=== PATIENT | female | born 1940 | race Caucasian/White ===

== ENCOUNTER → 2016-07-03 | Outpatient (CLI) | payer MEDICARE ==
--- NOTE | 2016-07-03 16:59 | REP ---
Chest two views HISTORY: Cough Comparison: 07/13/2007 Linear densities are present in the lower lobes consistent with scar. The heart is normal in size. The pulmonary vasculature is normal in appearance. The bony structure is intact. IMPRESSION: Bibasilar scarring. Signed by Bandar Campbell MD 07/03/2016 04:51 P
== END ==
LOC: M RAD 16:14
PROVIDERS: ATTEND Nurse Practitioner Adult Health
DX: R05 Cough (principal)

== ENCOUNTER → 2016-08-01 | Outpatient (CLI) | payer MEDICARE ==
[~2016-08-01] MED LIST: E-Z PAQUE 60% w/v SUSP 355ML BOTTLE As Ordered ONE; VARIBAR NECTAR 40% w/v 240ML SUSP BTL As Ordered ONE; VARIBAR PUDDING 40% w/v 230ML TUBE As Ordered ONE
--- NOTE | 2016-08-01 09:43 | REP ---
MODIFIED BARIUM SWALLOW: Cine fluoroscopy. HISTORY: Dysphasia. Fluoroscopy time is 45 seconds. FINDINGS: The study is performed in conjunction with the swallowing therapist who gave the patient a variety of barium textured materials. Video fluoroscopy was provided. With thin liquid barium, there was mild laryngeal penetration. No aspiration was seen. No other motor discoordination of swallow is seen. No penetration was observed with thicker materials. Mild degenerative disc changes are seen in the cervical spine. Signed by Anand Bacon MD 08/01/2016 05:35 P
== END ==
LOC: M ST 08:46
PROVIDERS: ATTEND Nurse Practitioner Adult Health
DX: R13.10 Dysphagia, unspecified (principal)
CPT/HCPCS: 74230; 92611; G8996; G8997; G8998

== ENCOUNTER → 2019-02-03 | Outpatient (CLI) | payer MEDICARE ==
[2019-02-03 10:24] LABS: COLLAGEN EPINEPHRINE 92 SECONDS (74-162)
== END ==
LOC: M LAB 09:46
PROVIDERS: ATTEND Ophthalmology
DX: H50.112 Monocular exotropia, left eye (principal); H53.032 Strabismic amblyopia, left eye

== ENCOUNTER 2019-06-01 12:36 | Day surgery (SDC) | payer MEDICARE ==
[~2019-06-01] VITALS: Ht 152.4 cm; Wt 66.2 kg
[~2019-06-01 12:36] MED LIST changes: -E-Z PAQUE 60% w/v SUSP 355ML BOTTLE As Ordered ONE; +ELIQ5TAB PO; +LISI10TA4 PO; +METO1TAB87 PO; +NEXI20CA PO; +NS 1,000 ML IV ONE; +TRAM50TA2 PO; -VARIBAR NECTAR 40% w/v 240ML SUSP BTL As Ordered ONE; -VARIBAR PUDDING 40% w/v 230ML TUBE As Ordered ONE
[2019-06-01] MEDS ORDERED: fentaNYL 100 MCG/2 ML INJECTION (J3010) As Ordered ONE (15:01)
[2019-06-01] MEDS ORDERED: propofoL 200 MG/20 ML VIAL As Ordered ONE (15:07)
[2019-06-01] MEDS ORDERED: LIDOCAINE 2% INJ 100 MG/5 ML SDV (FOR ANES.) As Ordered ONE (15:07)
--- NOTE | 2019-06-01 15:18 | ROOR ---
Patient Name: Halina Jernigan Procedure Date: 06/01/2019 3:03 PM Date of : 1940 Age: 78 Room: [facility] Gender: Female Note Status: Finalized Procedure: Upper GI endoscopy Indications: Epigastric abdominal pain, Heartburn Providers: Peter KUO MD Referring MD: SANTOS CANTU JR, MD Requesting Provider: Medicines: Monitored Anesthesia Care Complications: No immediate complications. Procedure: Pre-Anesthesia Assessment: - The heart rate, respiratory rate, oxygen saturations, blood pressure, adequacy of pulmonary ventilation, and response to care were monitored throughout the procedure. The Endoscope was introduced through the mouth, and advanced to the second part of duodenum. The upper GI endoscopy was accomplished without difficulty. The patient tolerated the procedure well. Findings: The examined esophagus was normal. Small Hiatal Hernia. Diffuse mild inflammation characterized by erythema was found in the gastric antrum. Biopsies were taken with a cold forceps for histology. The exam of the stomach was otherwise normal. The examined duodenum was normal. Impression: - Normal esophagus. - Small Hiatal Hernia. - Mucosal changes suspicious for bile gastritis. Biopsied. - Normal examined duodenum. Recommendation: - Await pathology results. - Continue present medications. - Follow an antireflux regimen. - Telephone endoscopist for pathology results in 2 weeks. Peter Kuo MD Peter KUO MD 06/01/2019 3:17:59 PM Electronically signed by Peter KUO MD Number of Addenda: 0 Note Initiated On: 06/01/2019 3:03 PM Estimated Blood Loss: Estimated blood loss: none.
[2019-06-01 15:45] VITALS: BP 193/89
== END 2019-06-01 16:14 | disposition home or self-care (01) ==
LOC: M OPP 12:36
PROVIDERS: ATTEND Internal Medicine Gastroenterology
DX: R10.13 Epigastric pain (principal); E11.9 Type 2 diabetes mellitus without complications; K31.89 Other diseases of stomach and duodenum; K44.9 Diaphragmatic hernia without obstruction or gangrene; I48.91 Unspecified atrial fibrillation; R06.83 Snoring; I11.9 Hypertensive heart disease without heart failure; Z79.01 Long term (current) use of anticoagulants; Z79.899 Other long term (current) drug therapy
CPT/HCPCS: 43239; 88305; J3010

== ENCOUNTER → 2019-10-06 | Outpatient (CLI) | payer MEDICARE ==
[~2019-10-06] MED LIST changes: -NS 1,000 ML IV ONE
[2019-10-06 10:22] LABS: HEMATOCRIT 46.1 % (36.0-47.0); HEMOGLOBIN 15.2 g/dl (12.0-15.5); MEAN CORPUSCULAR VOLUME 91.1 fl (80.0-96.0); PLATELET COUNT, AUTOMATED 209 10^3/uL (150-450); RED BLOOD COUNT 5.06 10^6/uL (4.00-5.40); WHITE BLOOD COUNT 6.7 10^3/uL (4.0-10.0)
[2019-10-06 10:52] LABS: CREATININE FOR GFR 1.03 MG/DL (0.55-1.30)
[2019-10-06 10:53] LABS: ALBUMIN 3.2 GM/DL (3.2-5.2); BILIRUBIN,TOTAL 0.7 MG/DL (0.2-1.0); CALCIUM LEVEL 8.9 MG/DL (8.8-10.2); GLOMERULAR FILTRATION RATE 55.5 (>39); POTASSIUM SERUM 4.3 MEQ/L (3.5-5.1); TOTAL PROTEIN 6.4 GM/DL (6.4-8.2)
== END ==
LOC: M WUC 08:58
PROVIDERS: ATTEND Internal Medicine Cardiovascular Disease
DX: I48.0 Paroxysmal atrial fibrillation (principal); E11.9 Type 2 diabetes mellitus without complications; I10 Essential (primary) hypertension

== ENCOUNTER 2019-11-29 21:14 | Inpatient (IN) | payer MEDICARE ==
[2019-11-29] MEDS ORDERED: ACETAMINOPHEN 500 MG TAB As Ordered ONE (23:39)
[2019-11-29] MEDS ORDERED: AUGMENTIN 875 MG TAB As Ordered ONE (23:39)
[2019-11-30] MEDS ORDERED: ONDANSETRON 4MG/2ML VIAL As Ordered ONE (05:17)
[2019-11-30] MEDS ORDERED: AUGMENTIN 500 MG TAB ONE (08:00)
[2019-11-30] MEDS ORDERED: DUTASTERIDE 0.5 MG CAP (AVODART) ONE (08:00)
[2019-11-30] MEDS ORDERED: PANTOPRAZOLE 40MG VIAL (C9113 PER 1) As Ordered ONE (10:23)
[2019-11-30] MEDS ORDERED: lisinopriL 10 MG TAB As Ordered ONE (10:23)
[2019-11-30] MEDS ORDERED: METOPROLOL SUCC *XL* 25MG TAB (TopROL *XL*) As Ordered ONE ×2 (10:23→20:54)
[2019-11-30] MEDS ORDERED: HumaLOG INSULIN (NovoLOG) PER UNIT As Ordered ONE (12:29)
[2019-11-30] MEDS ORDERED: LACTOBACILLUS ACIDOPHILUS CAP (BACID) As Ordered ONE ×2 (12:54→20:54)
[2019-12-01] MEDS ORDERED: METOPROLOL TART 50 MG TAB As Ordered ONE (08:33)
[2019-12-01] MEDS ORDERED: LACTOBACILLUS ACIDOPHILUS CAP (BACID) As Ordered ONE ×2 (08:33→13:16)
[2019-12-01] MEDS ORDERED: PANTOPRAZOLE 40MG VIAL (C9113 PER 1) As Ordered ONE (08:33)
[2019-12-01] MEDS ORDERED: lisinopriL 10 MG TAB As Ordered ONE (08:37)
[2019-12-01] MEDS ORDERED: HumaLOG INSULIN (NovoLOG) PER UNIT As Ordered ONE (08:37)
[2019-12-01] MEDS ORDERED: AUGMENTIN 500 MG TAB ONE (13:00)
--- NOTE | 2019-12-29 10:00 | MHCR ---
DATE: 12/01/2019 I want to clarify that the entire dictation and computer systems in the hospital have been down. I was asked to see this 79-year-old woman today by Dr. Garcia. Apparently, the patient comes to visit her every day, who is admitted to the hospital, basically terminal, and apparently she fell and fractured her nose. Dr. Garcia said from a medical point of view she is ready for discharge; however, the nurses have advised Dr. Garcia that they wonder if maybe there might be possibly some psychiatric problems with the patient. Apparently, they describe that she is exhibiting pressured speech, that she is forgetful. Apparently the patient is on the same floor that her is on, so they have allowed her to go and visit the , and the staff told her that she is not supposed to help the , and she tried to help the to get up, and the fell. Dr. Delvalle spoke with both of the sons, and they say that the patient, as far as they know, has never been treated for any psychiatric problems. They describe that their mother has sometimes had "odd behavior," but they feel that this baseline for their mother. I saw the patient together in the company of her son, and the patient was very cooperative. I did not see any pressured speech in this patient. I did not elicit any hypomanic or manic-like symptoms either. The patient has never had prior psychiatric treatment. She has never taken any psychotropic medications. The son does describe the mother as always being the kind of person that always wants to do everything at once and, of course, now that she is older he has noticed that it is a little more difficult for her to do these things. He is not noticed any actual problems with her memory. PAST PSYCHIATRIC HISTORY: This is negative, as stated above. FAMILY HISTORY: This is negative for any psychiatric problems with members of the family. MEDICAL HISTORY: The patient was admitted for the fractured nose, but she also has some other medical problems, like atrial fibrillation, hypertension, diabetes. SUBSTANCE ABUSE HISTORY: There is no history of any problems with alcohol or drugs. MENTAL STATUS EXAMINATION: Patient is alert and oriented times three. Pleasant. She was cooperative. I did not notice any pressured speech. There was no formal thought disorder noted. Said her mood, of course, was sad. Affect is appropriate to mood. She is not psychotic, suicidal, homicidal. Concentration is fair. Memory appeared to be mostly intact. The patient was able to spell "world" backward, able to remember two out of three words after 5 minutes. She could name parts of objects. Insight and judgment appeared to be good. DIAGNOSIS: Rule out unspecified cognitive disorder. TREATMENT PLAN: I do not have any recommendations from a point of view of psychiatric. At this point, the patient should continue her current treatment, but I do advise that she get further evaluated for any cognitive impairment by the neurologist. I will add that the patient did have a CT scan of the head that was normal. ARTHUR
[2020-01-16 03:46] LABS: BASO # 0.1 10^3/uL (0.0-0.2); BASO % 0.7 % (0.0-1.0); EOS # 0.1 10^3/uL (0.0-0.5); HEMATOCRIT 42.9 % (36.0-47.0); HEMOGLOBIN 14.1 g/dl (12.0-15.5); LYMPH # 1.8 10^3/uL (1.5-5.0); LYMPH % 17.4 % (24.0-44.0); MEAN CORPUSCULAR HEMOGLOBIN 29.3 pg (27.0-33.0); MEAN CORPUSCULAR HGB CONC 32.9 g/dl (32.0-36.5); MONO # 0.5 10^3/uL (0.0-0.8); MONO % 5.2 % (0.0-5.0); NEUTROPHILS # 7.9 10^3/uL (1.5-8.5); NEUTROPHILS % 75.4 % (36.0-66.0); PLATELET COUNT, AUTOMATED 226 10^3/uL (150-450); RED BLOOD COUNT 4.82 10^6/uL (4.00-5.40); WHITE BLOOD COUNT 10.4 10^3/uL (4.0-10.0)
[2020-01-16 04:02] LABS: INR 1.2; PARTIAL THROMBOPLASTIN TIME 28.5 SECONDS (24.2-38.5); PROTHROMBIN TIME 15.5 SECONDS (12.5-14.3)
--- NOTE | 2020-01-19 11:30 | ECGEPIP ---
[facility] Test Date: 2019-11-30 Pat Name: YANDEL HURST Department: Room: B4785-13 Gender: Female [employer] Washing: JAYCE : 1940 Requested By: CIRA Arroyo Order Number: [id number] Reading MD: Gregory Zepeda Measurements Intervals [place] Rate: 68 P: [place]: 0 QRS: 22 QRSD: 85 T: -4 QT: 405 QTc: 432 Interpretive Statements ATRIAL FIBRILLATION WITH CONTROLLED VR NONSPECIFIC ST & T-WAVE ABNORMALITIES EARLY ANTERIOR R WAVE PROGRESSION CONSIDER PRIOR TPMI COMPARISON NOT AVAILABLE SEE SCANNED DOWNTIME REPORT.
[2020-01-29 09:05] LABS: HEMATOCRIT 40.1 % (36.0-47.0); HEMOGLOBIN 13.1 g/dl (12.0-15.5); MEAN CORPUSCULAR HEMOGLOBIN 29.5 pg (27.0-33.0); MEAN CORPUSCULAR HGB CONC 32.7 g/dl (32.0-36.5); MEAN CORPUSCULAR VOLUME 90.3 fl (80.0-96.0); PLATELET COUNT, AUTOMATED 202 10^3/uL (150-450); RED BLOOD COUNT 4.44 10^6/uL (4.00-5.40); WHITE BLOOD COUNT 7.4 10^3/uL (4.0-10.0)
[2020-02-06 15:18] LABS: HEMATOCRIT 40.7 % (36.0-47.0); HEMOGLOBIN 13.3 g/dl (12.0-15.5); MEAN CORPUSCULAR HEMOGLOBIN 29.3 pg (27.0-33.0); MEAN CORPUSCULAR HGB CONC 32.7 g/dl (32.0-36.5); MEAN CORPUSCULAR VOLUME 89.6 fl (80.0-96.0); PLATELET COUNT, AUTOMATED 189 10^3/uL (150-450); RED BLOOD COUNT 4.54 10^6/uL (4.00-5.40)
[2020-02-07 01:20] LABS: ALBUMIN 3.7 GM/DL (3.2-5.2); CALCIUM LEVEL 9.1 MG/DL (8.8-10.2); CREATININE FOR GFR 1.03 MG/DL (0.55-1.30); GLOMERULAR FILTRATION RATE 55.3 (>39)
[2020-02-22 11:08] LABS: BLOOD UREA NITROGEN 19 MG/DL (7-18); CALCIUM LEVEL 8.6 MG/DL (8.8-10.2); CARBON DIOXIDE LEVEL 23 MEQ/L (21-32); CHLORIDE LEVEL 112 MEQ/L (98-107); CREATININE FOR GFR 0.82 MG/DL (0.55-1.30); GLOMERULAR FILTRATION RATE > 60.0 (>39); GLUCOSE, FASTING 136 MG/DL (70-100); HEMOGLOBIN A1c 7.2 %; POTASSIUM SERUM 3.6 MEQ/L (3.5-5.1); SODIUM LEVEL 142 MEQ/L (136-145)
[2020-02-23 16:19] LABS: BLOOD UREA NITROGEN 13 MG/DL (7-18); CREATININE FOR GFR 0.75 MG/DL (0.55-1.30); GLUCOSE, FASTING 124 MG/DL (70-100)
[2020-02-23 16:20] LABS: CALCIUM LEVEL 8.2 MG/DL (8.8-10.2); CARBON DIOXIDE LEVEL 23 MEQ/L (21-32); CHLORIDE LEVEL 111 MEQ/L (98-107); CHOLESTEROL LEVEL 154 MG/DL (<200); CHOLESTEROL RISK RATIO 3.208 (<5); GLOMERULAR FILTRATION RATE > 60.0 (>39); HDL CHOLESTEROL 48 MG/DL (>40); LDL CHOLESTEROL 87 MG/DL (<100); NON-HDL-C 106 MG/DL; POTASSIUM SERUM 3.9 MEQ/L (3.5-5.1); SODIUM LEVEL 140 MEQ/L (136-145); TRIGLYCERIDES LEVEL 95 MG/DL (<150)
== END 2019-12-01 17:26 | disposition home or self-care (01) | DRG 90 ==
LOC: M ED 21:14 → M MS5PR 11-30 01:40
PROVIDERS: ADMIT General Practice; ATTEND General Practice
DX: S06.0X9A Concussion with loss of consciousness of unspecified duration, initial encounter (principal); R04.0 Epistaxis; W18.30XA Fall on same level, unspecified, initial encounter; Y92.009 Unspecified place in unspecified non-institutional (private) residence as the place of occurrence of the external cause; I48.91 Unspecified atrial fibrillation; I10 Essential (primary) hypertension; E11.9 Type 2 diabetes mellitus without complications; Z79.899 Other long term (current) drug therapy

== ENCOUNTER → 2019-12-13 | Outpatient (CLI) | payer MEDICARE ==
--- NOTE | 2020-01-21 13:19 | REP ---
CHEST X-RAY: TWO VIEWS. HISTORY: Cough and fever. COMPARISON: No comparison study FINDINGS: There is an infiltrate in the right base anteriorly in the middle and upper lobe distribution consistent with pneumonia. Pleural angles are sharp. Heart size is borderline. Cardiothoracic ratio is 51.6%. Thoracic aorta is calcific. There are mild degenerative changes in the thoracic spine. Pulmonary vasculature is not increased. IMPRESSION: Right middle and upper lobe infiltrate consistent with pneumonia. MTDD
== END ==
LOC: M WUC 08:28
PROVIDERS: ATTEND Physician Assistant
DX: R05 Cough (principal); R50.9 Fever, unspecified; Z20.828 Contact with and (suspected) exposure to other viral communicable diseases